=== PATIENT | female | born 1945 | race Caucasian/White ===

== ENCOUNTER 2019-03-08 14:36 | Emergency (ER) | payer MEDICARE, OTHER ==
[~2019-03-08] VITALS: Ht 175.3 cm; Wt 83.2 kg
[~2019-03-08 14:36] MED LIST: DEXL30CA3 PO; DULO-31 PO; ENOX100S3 SQ; FENO145T38 PO; FOLI-43 PO; HYDR2TAB28 PO; LORA0.5T PO; NEBI5TAB5 PO; OLME1TAB30 PO; PROG200C16 PO; THY60T PO; ZET10T PO; ZOLP10TA5 PO; [UNRECOGNIZED DRUG - OTHER] TD
[2019-03-08 15:17] LABS: BASOPHILS % (AUTO) 0.3 % (0-1); EOSINOPHILS % (AUTO) 0.4 % (0-6); HEMATOCRIT 34.4 % (35.0-45.0); HEMOGLOBIN 11.3 g/dl (12.0-16.0); LYMPHOCYTES % (AUTO) 8.4 % (21-51); MEAN CORPUSCULAR HEMOGLOBIN 25.7 PG (27.0-31.0); MEAN CORPUSCULAR HGB CONC 32.8 g/dL (33.0-36.5); MEAN CORPUSCULAR VOLUME 78.4 FL (78-98); MEAN PLATELET VOLUME 7.3 FL (7.4-10.4); MONOCYTES # (AUTO) 1.1 X10'3 (0-0.9); MONOCYTES % (AUTO) 9.5 % (2-12); NEUTROPHILS # (AUTO) 9.4 X10'3 (1.8-7.7); NEUTROPHILS % (AUTO) 81.4 % (42-75); PLATELET COUNT 348 X10'3 (140-440); RED BLOOD COUNT 4.38 X10'6 (4.20-5.60); RED CELL DISTRIBUTION WIDTH 16.8 % (11.5-14.5); WHITE BLOOD COUNT 11.6 X10'3 (4.5-11.0)
[2019-03-08 15:31] LABS: PARTIAL THROMBOPLASTIN TIME 29 SECONDS (22-32)
[2019-03-08 15:36] LABS: ALANINE AMINOTRANSFERASE 35 U/L (12-78); ALBUMIN 2.7 G/DL (3.4-5.0); ALBUMIN/GLOBULIN RATIO 0.7 (1.1-1.5); ALKALINE PHOSPHATASE 164 IU/L (46-116); ANION GAP 13 (8-16); ASPARTATE AMINO TRANSFERASE 26 U/L (10-37); BILIRUBIN,TOTAL 0.6 MG/DL (0.1-1.0); BLOOD UREA NITROGEN 10 MG/DL (7-18); BUN/CREATININE RATIO 16.7 (6.6-38.0); CALCIUM 8.5 MG/DL (8.5-10.1); CHLORIDE 105 MMOL/L (99-107); GLUCOSE 98 MG/DL (70-104); POTASSIUM 3.1 MMOL/L (3.5-5.1); SODIUM 141 MMOL/L (135-145); TOTAL CARBON DIOXIDE 23.1 MMOL/L (24-32); TOTAL PROTEIN 6.4 G/DL (6.4-8.2); eGFR > 90 ML/MIN
[2019-03-08] MEDS ORDERED: normal saline 1000ml 1,000 ML IV ONE (16:00)
[2019-03-08] MEDS ORDERED: ondansetron/PF 4mg/2ml inj IV ONE (16:00)
[2019-03-08] MEDS ORDERED: diltiazem 5mg/ml 5ml inj. IV ONE ×2 (16:25→18:00)
[2019-03-08] MEDS ORDERED: amiodarone 200mg tablet PO ONE (16:25)
[2019-03-08] MEDS ORDERED: normal saline 1000ML IV soln IVB ONE (17:50)
[2019-03-08] MEDS ORDERED: ONDA8TAB6 PO (17:52)
[2019-03-08] MEDS ORDERED: diltiazem-D5W 125mg/125ml 125 ML IV SCH (19:05)
[2019-03-08] MEDS ORDERED: diltiazem-NS 100mg/100ml 100 ML IV SCH (19:05)
[2019-03-08] MEDS ORDERED: THY60T PO (19:58)
[2019-03-08] MEDS ORDERED: DOCU100C41 PO (19:58)
[2019-03-08] MEDS ORDERED: ROSU40TA PO (19:58)
[2019-03-08] MEDS ORDERED: CEFD300C3 PO (19:58)
[2019-03-08] MEDS ORDERED: TRAM50TA2 PO (19:58)
[2019-03-08] MEDS ORDERED: TICA90TA PO (19:58)
[2019-03-08] MEDS ORDERED: COLC0.6T69 PO (19:58)
[2019-03-08] MEDS ORDERED: ACET-2615 PO (19:58)
[2019-03-08] MEDS ORDERED: BUSP10TA11 PO (19:58)
[2019-03-08] MEDS ORDERED: ASPI-257 PO (19:58)
[2019-03-08] MEDS ORDERED: AMIO200T61 PO (19:58)
[2019-03-08] MEDS ORDERED: CYAN500T63 PO (19:58)
[2019-03-08] MEDS ORDERED: PANT40TA4 PO (19:58)
[2019-03-08] MEDS ORDERED: HYDR25TA4 PO (19:58)
--- NOTE | 2019-03-08 20:29 | NUR ---
PT EVALUATED BY HOSPITALIST FOR POSSIBLE ADMISSION, DUE TO PATIENT BEING IN SINUS RYTHM AND RATE CONTROLLED THE PATIENT DOESN'T CURRENTLY MEET CRITERIA FOR ADMISSION. PT GAIT TESTED AND PASSED WITH NO DISTRESS. PT TO BE DISCHARGED BY ER MD.
--- NOTE | 2019-03-08 20:34 | NUR ---
VERBAL ORDER TO D/C CANDY NAYAK
[2019-03-08 20:50] VITALS: BP 132/57
== END 2019-03-08 20:50 | disposition home or self-care (01) ==
LOC: ER 14:36
DX: I48.91 Unspecified atrial fibrillation (principal); E78.00 Pure hypercholesterolemia, unspecified; I10 Essential (primary) hypertension; K21.9 Gastro-esophageal reflux disease without esophagitis; R19.7 Diarrhea, unspecified; Z90.710 Acquired absence of both cervix and uterus; Z98.890 Other specified postprocedural states; Z79.899 Other long term (current) drug therapy; Z88.0 Allergy status to penicillin; Z88.2 Allergy status to sulfonamides; Z88.6 Allergy status to analgesic agent; Z88.5 Allergy status to narcotic agent; Z88.1 Allergy status to other antibiotic agents; Z86.711 Personal history of pulmonary embolism
CPT/HCPCS: 36415; 71045; 80053; 83880; 84484; 85025; 85610; 85730; 93005; 96361; 96365; 96375; 96376; 99284; J2405; J7030; J7040; J3490